=== PATIENT | female | born 2005 | race Caucasian/White ===

== ENCOUNTER 2023-02-10 23:24 | Outpatient (CLI) | payer BC, SELFPAY | END 2023-02-10 23:25 | disposition home or self-care (01) | LOC: AMB 02-13 11:12 | PROVIDERS: Visit Provider Family Medicine | DX: F10.129 Alcohol abuse with intoxication, unspecified (principal); R41.82 Altered mental status, unspecified | CPT/HCPCS: A0425; A0427 ==

== ENCOUNTER 2023-02-10 23:58 | Emergency (ER) | payer BC, SELFPAY ==
[2023-02-11 00:08] VITALS: BP 95/65; PULSE 61; RESP 16; TEMP 36.7; O2SAT 100; BMI 19.1
--- NOTE | 2023-02-11 00:11 | ED_ITS ---
HPI - General Adult General Chief complaint: Alcohol/Intoxication Stated complaint: ETOH Time Seen by Provider: 02/11/23 00:07 History of Present Illness HPI narrative: CC: Alcohol Intoxication pt. has been drinking alcohol tonight . was found outside on ground. no injuries noted. vomit on patient. 17-year-old young woman presenting to the emergency department via EMS after drinking alcohol at local [employer] this evening. Is not known to have hit her head or sustained any other injuries. Information gathered later was that she was with a friend who I understand assisted with a controlled fall in the bathroom. She was collected by EMS on a lawn. Clothing intact per reports. On arrival in general she has ignoring inquiries with her eyes closed. Finally I ask if she is hurt in anyway she does answer loudly ?no? and partially sits up briefly. Then settles back down. Related Data Home Medications Medication Instructions Recorded Confirmed No Known Home Medications 02/11/23 02/11/23 Allergies Allergy/AdvReac Type Severity Reaction Status Date / Time No Known Drug Allergies Allergy Verified 02/11/23 00:10 Review of Systems Status of ROS: Reports: 6 or more systems reviewed and unremarkable except as noted in History and below [facility] Social History Smoking Status: Unknown if ever smoked Do you use any of these nicotine containing products: Vaping Products How often do you have a drink containing alcohol: 2-4 times a month How many standard drinks containing alcohol do you have on a typical day: 7 to 9 How often do you have six or more drinks on one occasion: Monthly AUDIT-C Alcohol total score: 7 Non-prescribed substance use: marijuana (any form) Non-prescribed substance use details: [facility] service: No Exam Narrative: Exam Narrative: GCS of 14. Vomitus on her pants. Supporting her own airway. Stays curled up on her left side generally unresponsive though when I ask about pain she quickly and forcefully answers no, seems annoyed, and begins to sit up. Then lays back down in apparent attempt to sleep. Heart is in slower rate and regular rhythm. Pupils are equal appropriately reactive; moderately dilated. Head looks atraumatic. Other injury not appreciated on her person. Lungs are clear. Abdomen is soft. Appears to be nontender. Const: Vital Signs, click to edit/add: Vital Signs - 24 hr 02/11/23 00:08 Temperature 98.0 F Pulse Rate [Right Pulse Oximeter] 61 Respiratory Rate 16 Blood Pressure [Ri ght Upper Arm] 95/65 Pulse Oximetry 100 Oxygen Delivery Me thod Room Air Documenting provider has reviewed patient's vital signs: yes Course Vital Signs Vital signs: Initial Vital Signs Temperature 98.0 F 02/11/23 00:08 Temperature Source Temporal Artery Scan 02/11/23 00:08 Pulse Rate 61 02/11/23 00:08 Respiratory Rate 16 02/11/23 00:08 Blood Pressure 95/65 02/11/23 00:08 Blood Pressure Mean 75 02/11/23 00:08 Blood Pressure Position Supine 02/11/23 00:08 Pulse Oximetry 100 02/11/23 00:08 Oxygen Delivery Method Room Air 02/11/23 00:08 Vital Signs Temperature 98.0 F 02/11/23 00:08 Pulse Rate 61 02/11/23 00:08 Respiratory Rate 16 02/11/23 00:08 Blood Pressure 95/65 02/11/23 00:08 Pulse Oximetry 100 02/11/23 00:08 Oxygen Delivery Method Room Air 02/11/23 00:08 Temperature 98.0 F 02/11/23 02:00 Pulse Rate 85 02/11/23 02:00 Respiratory Rate 18 02/11/23 02:00 Blood Pressure 110/74 02/11/23 02:00 Pulse Oximetry 99 02/11/23 02:00 Oxygen Delivery Method Room Air 02/11/23 02:00 Medications Administered Medications: Discontinued Medications Generic Name Dose Route Start Last Admin Trade Name Zayq PRN Reason Stop Dose Admin Promethazine HCl 12.5 mg 02/11/23 06:13 02/11/23 01:22 Promethazine 25 Mg/Ml Inj IVP 02/11/23 06:14 12.5 mg ONCE ONE Administration Medical Decision Making MDM Narrative Medical decision making narrative: Monitored in the emergency department to establish maintaining airway, vital s tability. Does not appear to need evaluation for any injuries. Has been receiving normal saline. Zofran from EMS. Parents arrive to attend to [place]. With further vomiting is given promethazine IV. Pulse and pressures improve over time in the ER. Ultimately discharged to care of parents Discharge Plan Discharge Clinical Impression: Alcoholic intoxication Patient Disposition: Home w/ Parent or Adult Additional Instructions: It is very important that you take more care with alcohol consumption. This leaves you in a vulnerable and potentially dangerous situation. Prescriptions: No Action No Known Home Medications Stand Alone Forms: TEL[facility] [employer] Info Instructions
[2023-02-11 00:15] VITALS: O2SAT 100
[2023-02-11] MEDS: PROMETHAZINE 25 MG/ML INJ 12.5 MG IVP (01:22)
[2023-02-11 02:00] VITALS: BP 110/74; PULSE 85; RESP 18; TEMP 36.7; O2SAT 99
== END 2023-02-11 02:00 | disposition home or self-care (01) ==
PROVIDERS: Emergency Provider Family Medicine
DX: F10.129 Alcohol abuse with intoxication, unspecified (principal)
CPT/HCPCS: 94761; 96374; 99283; 99284; J2550